=== PATIENT | female | born 1935 | race Caucasian/White ===

== ENCOUNTER 2025-01-21 12:01 | Observation (INO) | payer OTHER ==
[~2025-01-21] VITALS: Ht 154.9 cm; Wt 52.5 kg
[2025-01-22 07:23] VITALS: BP 116/63
== END 2025-01-22 14:07 | disposition home health service (06) ==
LOC: ER 12:01 → MEDS 12:02
PROVIDERS: ADMIT Internal Medicine
DX: M62.82 Rhabdomyolysis (principal); N39.0 Urinary tract infection, site not specified; I48.91 Unspecified atrial fibrillation; J45.909 Unspecified asthma, uncomplicated; K90.0 Celiac disease; Z88.1 Allergy status to other antibiotic agents; Z88.0 Allergy status to penicillin; Z91.018 Allergy to other foods; Z79.899 Other long term (current) drug therapy